=== PATIENT | male | born 1940 | race Caucasian/White ===

== ENCOUNTER 2018-02-01 13:22 | Day surgery (SDC) | payer MEDICARE ==
[2018-02-01] MEDS ORDERED: LIDOCAINE 2% MDV (20MG/ML) 20ML VIAL IV ONE (13:23)
[2018-02-01] MEDS ORDERED: PROPOFOL 10 MG/ML VIAL IV ONE (13:23)
[2018-02-01] MEDS ORDERED: MIDAZOLAM HCL 2MG/2ML VIAL IV ONE (13:23)
--- NOTE | 2018-02-03 17:50 | Operative Note ---
DATE OF SURGERY: 02/01/2018 OPERATION: COLONOSCOPY to the cecum with cold biopsy forceps polypectomy. INDICATION: Colorectal cancer screening. Patient had prior colonoscopies demonstrating hyperplastic polyps. His last one completed by my associate was 8 years ago. He returns at this time for screening purposes. He denies current GI issues. ANESTHESIA: Intravenous sedation was administered by the department of anesthesiology and included Diprivan titrated to effect. PROCEDURE: Following informed consent from this alert individual including a discussion of the risks and benefits of the procedure and an opportunity for the patient to ask questions, the patient was in the left lateral decubitus position. A digital rectal examination was performed. No abnormalities were noted. Following this, the Olympus [id number] video colonoscope was inserted into the rectum without resistance. The rectal mucosa had a normal appearance with normal folds and distensibility. The colonoscope was advanced up through the colon to the level of the cecum without much difficulty. Throughout the bowel the mucosa appeared normal, the folds were normal, and the bowel was fairly well distensible. The cecum was defined by noting the appendiceal orifice and ileocecal valve. From the base of the cecum, the colonoscope was then withdrawn. The colon preparation was good. There was a diminutive 3 mm polyp noted in the transverse colon which was removed with biopsy forceps. No other polyps were seen throughout. Retroflexion in the rectum was endoscopically normal. The instrument was removed. The patient tolerated the procedure well and was returned to the recovery area in stable condition. IMPRESSION: 1. A 3 mm transverse colon polyp removed with biopsy forceps. 2. Otherwise unremarkable colonoscopy to the cecum. RECOMMENDATIONS: The patient was advised he should receive a copy of his pathology report at home in the next 2 weeks. Further recommendations may be forthcoming pending those results. Followup will be with Dr. Mendez. As always, thank you for allowing me to participate in the care of your patient. CC: Lucas ALEJANDRO
== END 2018-02-01 16:35 | disposition home or self-care (01) ==
LOC: HOP 13:22
PROVIDERS: ATTEND Internal Medicine Gastroenterology
DX: Z12.11 Encounter for screening for malignant neoplasm of colon (principal); Z86.010 Personal history of colon polyps; D12.3 Benign neoplasm of transverse colon; I10 Essential (primary) hypertension; E11.9 Type 2 diabetes mellitus without complications